=== PATIENT | male | born 1970 ===

== ENCOUNTER 2017-03-28 06:40 | Observation (INO) | payer OTHER ==
[2017-03-28] MEDS ORDERED: Naloxone 0.4 mg/ml Inj (Adult) ONE (06:49)
[2017-03-28] MEDS ORDERED: Naloxone 0.4 mg/ml Inj (Adult) IVP ONE (06:50)
--- NOTE | 2017-03-28 07:29 | C.PDOC ---
History Of Present Illness 46 y/o male, with history of heroin abuse, is brought to the ED by EMS after being found sleeping outside a building. Upon arrival to ED, patient appeared to have decreased respiratory rate and pinpoint pupils. Narcan was given by prior MD. Patient became awake, alert and oriented x3, and admits to heroin use. Otherwise, denies any SI/HI, chest pain, shortness of breath, nausea, vomiting, abdominal pain, headache, neck pain, or any other physical complaints at this time. Time Seen by Provider: 03/28/17 07:07 Chief Complaint (Nursing): Substance Abuse History Per: Patient History/Exam Limitations: intoxication Onset/Duration Of Symptoms: Gradual Current Symptoms Are (Timing): Still Present Suicide/Self Injury Attempted (Context): None Modifying Factor(s): Other (heroin) Severity: None Pain Scale Rating Of: 0 Associated Symptoms: denies: Anxiety, Suicidal Thoughts, Suicidal Plan Involuntary Hold By: None Recent travel outside of the [place]: No Additional History Per: EMS Past Medical History Reviewed: Historical Data, Nursing Documentation, Vital Signs Vital Signs: Last Vital Signs Temp 97.4 F L 03/28/17 17:33 Pulse 65 03/28/17 17:33 Resp 18 03/28/17 17:33 BP 139/88 03/28/17 17:33 Pulse Ox 100 03/28/17 17:33 Family History: States: Unknown Family Hx - Social History Hx Alcohol Use: No Hx Substance Use: Yes - Immunization History Hx Tetanus Toxoid Vaccination: No Hx Influenza Vaccination: No Hx Pneumococcal Vaccination: No Review Of Systems Except As Marked, All Systems Reviewed And Found Negative. Constitutional: Negative for: Fever, Chills Cardiovascular: Negative for: Chest Pain, Palpitations, Light Headedness Respiratory: Negative for: Shortness of Breath Gastrointestinal: Negative for: Nausea, Vomiting, Abdominal Pain Musculoskeletal: Negative for: Neck Pain Skin: Negative for: Rash, Bruising Neurological: Negative for: Weakness, Numbness, Headache, Dizziness Psych: Negative for: Anxiety, Depression, Suicidal ideation Physical Exam - Physical Exam Appears: Non-toxic, No Acute Distress, Other (lethargic) Skin: Normal Color, Warm, Dry, No Rash Head: Atraumatic, Normacephalic, No Other (no signs of head injury) Eye(s): bilateral: Normal Inspection, EOMI Oral Mucosa: Moist Neck: Normal, Normal ROM, No Midline Cervical Tenderness, Supple Cardiovascular: Rhythm Regular, No Murmur Respiratory: Normal Breath Sounds, No Rales, No Rhonchi, No Wheezing Gastrointestinal/Abdominal: Soft, No Tenderness Extremity: Normal ROM, No Deformity Extremity: Bilateral: Atraumatic (no signs of trauma), Normal ROM (Moving all 4 extremities) Neurological/Psych: Oriented x3, Other (arousable) ED Course And Treatment O2 Sat by Pulse Oximetry: 99 (RA) Pulse Ox Interpretation: Normal Progress Note: Plan: Narcan, monitor patient. On re-eval, patient is resting comfortably in bed. No signs of acute distress. ED OBSERVATION Discharge: Yes Date of observation admission: 03/28/17 Time of observation admission: 07:02 - Observation admission statement Patient is being placed in observation because:: heroin abuse - Goals of Observation Goals of observation are:: monitoring for sobriety - Progress Note Progress Note: 03/28/17 08:25 Resting comfortably in NAD 03/28/17 09:30 Resting comfortably in NAD 03/28/17 10:15 Resting comfortably in NAD 03/28/17 12:25 Resting comfortably in NAD 03/28/17 14:25 Asking for food 03/28/17 17:19 Patient has been monitored for over 10 hours in ED. He is now AAOx3, tolerating po and ambulating around the ED. He is requesting to go home. Will dc 03/28/17 18:07 Nurse informed me that patient walked out before he got his discharge paperwork Disposition - Disposition Disposition: HOME/ ROUTINE Disposition Time: 17:21 Condition: GOOD - Clinical Impression Clinical Impression: Drug abuse - Scribe Statement The provider has reviewed the documentation as recorded by the Scribe Jennifer Martinez All medical record entries made by the Macibe were at my direction and personally dictated by me. I have reviewed the chart and agree that the record accurately reflects my personal performance of the history, physical exam, medical decision making, and the department course for this patient. I have also personally directed, reviewed, and agree with the discharge instructions and disposition.
[2017-03-28 15:35] VITALS: RESP 18
[2017-03-28 17:34] VITALS: BP 139/88; PULSE 65; TEMP 97.4
[2017-03-28 18:07] VITALS: O2SAT 99
== END 2017-03-28 17:21 | disposition home or self-care (01) ==
LOC: C.ER 06:40 → MERGE 07:00 → C.9OBSV 07:00
PROVIDERS: ADMIT Emergency Medicine; ATTEND Emergency Medicine
DX: F11.10 Opioid abuse, uncomplicated (principal)
CPT/HCPCS: 96374; G0378; J2310

== ENCOUNTER 2017-05-30 12:30 | Emergency (ER) | payer SELFPAY ==
--- NOTE | 2017-05-30 12:51 | C.PDOC ---
Time Seen by Provider: 05/30/17 12:50 Past Medical History - Medical History PMH: Asthma Family History: States: Unknown Family Hx - Social History Hx Tobacco Use: Yes Hx Alcohol Use: No (Unknown) Hx Substance Use: Yes - Immunization History Hx Tetanus Toxoid Vaccination: No Hx Influenza Vaccination: No Hx Pneumococcal Vaccination: No Disposition Counseled Patient/Family Regarding: Diagnosis, Need For Followup - Disposition Referrals: [facility] [Outside] [facility] at [facility] [Outside] Disposition: HOME/ ROUTINE Disposition Time: 12:51 Condition: GOOD Instructions: Polysubstance Abuse (ED) - Clinical Impression Clinical Impression: Substance abuse
[2017-05-30 12:54] VITALS: BP 133/76; PULSE 75; RESP 15; TEMP 98.2; O2SAT 96
--- NOTE | 2017-05-30 12:54 | C.PDOC ---
History Of Present Illness 46 Y/O MALE BIBA AFTER FOUND SLEEPING. NO MEDS GIVEN. DECLINES ANY FURTHER EVALUATION. EXAM DISSHEVELED AWAKE, TALKING, INTERACTIVE STEADY GAIT Time Seen by Provider: 05/30/17 12:50 Chief Complaint (Nursing): Medical Clearance History Per: Patient History/Exam Limitations: no limitations Current Symptoms Are (Timing): Still Present Recent travel outside of the [place]: No Past Medical History Reviewed: Historical Data, Nursing Documentation, Vital Signs Vital Signs: Last Vital Signs Temp 98.2 F 05/30/17 12:51 Pulse 75 05/30/17 12:51 Resp 15 05/30/17 12:51 BP 133/76 05/30/17 12:51 Pulse Ox 96 05/30/17 12:51 - Medical History PMH: Asthma Family History: States: Unknown Family Hx - Social History Hx Tobacco Use: Yes Hx Alcohol Use: No (Unknown) Hx Substance Use: Yes - Immunization History Hx Tetanus Toxoid Vaccination: No Hx Influenza Vaccination: No Hx Pneumococcal Vaccination: No Review Of Systems Except As Marked, All Systems Reviewed And Found Negative. Constitutional: Negative for: Fever Cardiovascular: Negative for: Chest Pain Respiratory: Negative for: Shortness of Breath, Wheezing Gastrointestinal: Negative for: Vomiting Neurological: Negative for: Headache Physical Exam - Physical Exam Appears: Non-toxic, Other (DISSHEVELED, AWAKE AND ALERT, INTERACTING, AMBULATORY ) Skin: Warm, Dry Head: Atraumatic, Normacephalic Chest: Symmetrical Cardiovascular: Rhythm Regular Respiratory: Normal Breath Sounds, No Wheezing Gastrointestinal/Abdominal: Soft, No Tenderness Extremity: Normal ROM Neurological/Psych: Oriented x3 Gait: Steady ED Course And Treatment O2 Sat by Pulse Oximetry: 96 Pulse Ox Interpretation: Normal Disposition - Disposition Referrals: [facility] [Outside] [facility] at [facility] [Outside] Disposition: HOME/ ROUTINE Disposition Time: 12:51 Condition: GOOD Instructions: Polysubstance Abuse (ED) Forms: [employer] (P[place]an) - Clinical Impression Clinical Impression: Substance abuse - Scribe Statement The provider has reviewed the documentation as recorded by the Scribe SM All medical record entries made by the Scribe were at my direction and personally dictated by me. I have reviewed the chart and agree that the record accurately reflects my personal performance of the history, physical exam, medical decision making, and the department course for this patient. I have also personally directed, reviewed, and agree with the discharge instructions and disposition.
== END 2017-05-30 13:57 | disposition home or self-care (01) ==
LOC: C.ER 12:30
DX: F19.10 Other psychoactive substance abuse, uncomplicated (principal)

== ENCOUNTER 2017-05-31 09:41 | Emergency (ER) | payer SELFPAY ==
[2017-05-31 09:43] VITALS: BMI 27.8
[2017-05-31 09:47] VITALS: TEMP 98.5
--- NOTE | 2017-05-31 11:43 | C.PDOC ---
History Of Present Illness 46 year old male brought to ED via BLS for substance and alcohol abuse. Patient was [place] in [place]. Otherwise, patient denies any active physical complaints at this time. Patient states he would like to "sleep it off ". No other complaints. Chief Complaint (Nursing): Substance Abuse History Per: Patient History/Exam Limitations: no limitations Onset/Duration Of Symptoms: Gradual Current Symptoms Are (Timing): Still Present Suicide/Self Injury Attempted (Context): None Modifying Factor(s): Alcohol Severity: None Pain Scale Rating Of: 0 Associated Symptoms: denies: Suicidal Thoughts, Suicidal Plan Involuntary Hold By: None Recent travel outside of the [place]: No Additional History Per: Patient Past Medical History Reviewed: Historical Data, Nursing Documentation, Vital Signs Vital Signs: Last Vital Signs Temp 98.5 F 05/31/17 09:42 Pulse 61 05/31/17 15:00 Resp 18 05/31/17 15:00 BP 129/79 05/31/17 15:00 Pulse Ox 100 05/31/17 15:00 - Medical History PMH: Asthma Family History: States: Unknown Family Hx - Social History Hx Tobacco Use: Yes Hx Alcohol Use: Yes (Unknown) Hx Substance Use: Yes - Immunization History Hx Tetanus Toxoid Vaccination: No Hx Influenza Vaccination: No Hx Pneumococcal Vaccination: No Review Of Systems Except As Marked, All Systems Reviewed And Found Negative. Constitutional: Negative for: Fever, Chills Cardiovascular: Negative for: Chest Pain, Palpitations Respiratory: Negative for: Cough, Shortness of Breath Gastrointestinal: Negative for: Nausea, Vomiting, Abdominal Pain Neurological: Negative for: Headache, Dizziness Psych: Negative for: Suicidal ideation Physical Exam - Physical Exam Appears: Non-toxic, No Acute Distress Skin: Normal Color, Warm, Dry Head: Atraumatic, Normacephalic Eye(s): bilateral: Normal Inspection Nose: Normal Oral Mucosa: Moist Neck: Supple Chest: Symmetrical Cardiovascular: Rhythm Regular, No Murmur Respiratory: Normal Breath Sounds, No Rales, No Rhonchi, No Wheezing Gastrointestinal/Abdominal: Soft, No Tenderness Back: No CVA Tenderness Extremity: Normal ROM Neurological/Psych: Oriented x3, Normal Speech ED Course And Treatment O2 Sat by Pulse Oximetry: 94 Medical Decision Making Medical Decision Making: Impression: substance abuse, alcohol abuse On re-eval, pt is awake, alert, and oriented x3. Pt is ambulating with steady gait. Patient is being discharged home. Disposition - Disposition Referrals: Clinic,Med Surg [Non-Staff] - Disposition: HOME/ ROUTINE Disposition Time: 14:46 Condition: IMPROVED Additional Instructions: stop using drugs follow up with your doctor in 2 days or medical clinic call to make an appointment return to hospital if symptoms worsens or progress Instructions: Abuse of Alcohol (ED), Polysubstance Abuse (ED) Forms: [facility] (Sinhala), General Discharge Instructions - Clinical Impression Clinical Impression: Drug dependence, Drug abuse - Scribe Statement The provider has reviewed the documentation as recorded by the Scribe Jennifer Martinez All medical record entries made by the Macibe were at my direction and personally dictated by me. I have reviewed the chart and agree that the record accurately reflects my personal performance of the history, physical exam, medical decision making, and the department course for this patient. I have also personally directed, reviewed, and agree with the discharge instructions and disposition.
[2017-05-31 15:00] VITALS: BP 129/79; PULSE 61; RESP 18
[2017-05-31 16:36] VITALS: O2SAT 94
== END 2017-05-31 15:01 | disposition home or self-care (01) ==
LOC: C.ER 09:41
DX: F19.20 Other psychoactive substance dependence, uncomplicated (principal)

== ENCOUNTER 2018-01-09 01:53 | Emergency (ER) | payer SELFPAY ==
[2018-01-09 01:53] VITALS: BMI 27.8
[2018-01-09 02:00] VITALS: RESP 16
--- NOTE | 2018-01-09 02:02 | C.PDOC ---
History Of Present Illness The patient is brought to the ED by ambulance after he was found publicly intoxicated prior to arrival. Patient admits to drinking earlier today. He shows no obvious signs of trauma/injury and has no complaints at this time. Time Seen by Provider: 01/09/18 02:02 Chief Complaint (Nursing): Substance Abuse History Per: Patient, EMS History/Exam Limitations: intoxication Onset/Duration Of Symptoms: Hrs Current Symptoms Are (Timing): Still Present Suicide/Self Injury Attempted (Context): None Modifying Factor(s): Alcohol Severity: None Pain Scale Rating Of: 0 Associated Symptoms: denies: Suicidal Thoughts, Suicidal Plan Involuntary Hold By: None Recent travel outside of the [place]: No Additional History Per: Patient, EMS Past Medical History Reviewed: Historical Data, Nursing Documentation, Vital Signs Vital Signs: Last Vital Signs Temp 98.0 F 01/09/18 01:57 Pulse 75 01/09/18 01:57 Resp 16 01/09/18 01:57 BP 114/72 01/09/18 01:57 Pulse Ox 96 01/09/18 02:39 - Medical History PMH: Asthma Surgical History: No Surg Hx Family History: States: Unknown Family Hx - Social History Hx Tobacco Use: Yes Hx Alcohol Use: Yes (Unknown) Hx Substance Use: Yes - Immunization History Hx Tetanus Toxoid Vaccination: No Hx Influenza Vaccination: No Hx Pneumococcal Vaccination: No Review Of Systems Constitutional: Negative for: Fever, Chills Cardiovascular: Negative for: Chest Pain, Palpitations Respiratory: Negative for: Cough, Shortness of Breath Gastrointestinal: Negative for: Nausea, Vomiting Skin: Negative for: Rash, Lesions, Jaundice, Bruising Neurological: Negative for: Weakness, Numbness Psych: Positive for: Other (EtOH intoxication ). Negative for: Suicidal ideation Physical Exam - Physical Exam Appears: Non-toxic, No Acute Distress, Other (visibly intoxicated ) Skin: Warm, Dry Head: Normacephalic Eye(s): bilateral: Normal Inspection Oral Mucosa: Moist, Other (alcohol on breath ) Neck: Supple Chest: Symmetrical, No Deformity, No Tenderness Cardiovascular: Rhythm Regular, No Murmur Respiratory: No Accessory Muscle Use Extremity: Normal ROM, Capillary Refill (less than 2 seconds ) Neurological/Psych: Other (arousable to touch and verbal stimuli ) Gait: Unsteady ED Course And Treatment O2 Sat by Pulse Oximetry: 96 (on RA ) Pulse Ox Interpretation: Normal Reevaluation Time: 05:19 Reassessment Condition: Improved Disposition Counseled Patient/Family Regarding: Studies Performed, Diagnosis, Need For Followup - Disposition Referrals: [facility] [Outside] Disposition: HOME/ ROUTINE Disposition Time: 02:02 Condition: FAIR Instructions: Alcohol Abuse and Alcoholism (DC) Forms: [facility] (Kiswahili) - Clinical Impression Clinical Impression: Alcohol intoxication - Scribe Statement The provider has reviewed the documentation as recorded by the Scribe (Lexus Martinez) Provider Attestation: All medical record entries made by the Scribe were at my direction and personally dictated by me. I have reviewed the chart and agree that the record accurately reflects my personal performance of the history, physical exam, medical decision making, and the department course for this patient. I have also personally directed, reviewed, and agree with the discharge instructions and disposition.
[2018-01-09 05:27] VITALS: BP 106/71; PULSE 70; TEMP 97.8; O2SAT 97
== END 2018-01-09 05:40 | disposition home or self-care (01) ==
LOC: C.ER 01:53
DX: F10.129 Alcohol abuse with intoxication, unspecified (principal); Z72.0 Tobacco use

== ENCOUNTER 2018-02-26 19:45 | Emergency (ER) | payer SELFPAY ==
[2018-02-26 19:46] VITALS: BMI 27.8
[2018-02-26 19:52] VITALS: RESP 20
--- NOTE | 2018-02-26 20:26 | C.PDOC ---
History Of Present Illness Patient brought into ER via EMS after being found drowsy. Patient admits to using 4 bags of heroin today, states he got out of long-term 2 days ago and was celebrating. Denies suicidal ideation or homicidal ideation. Time Seen by Provider: 02/26/18 20:05 Chief Complaint (Nursing): Substance Abuse History Per: Patient History/Exam Limitations: no limitations Onset/Duration Of Symptoms: Hrs Current Symptoms Are (Timing): Still Present Suicide/Self Injury Attempted (Context): None Modifying Factor(s): Other (Heroin) Severity: None Pain Scale Rating Of: 0 Associated Symptoms: denies: Suicidal Thoughts, Other (Homicidal ideation) Involuntary Hold By: None Recent travel outside of the [place]: No Past Medical History Reviewed: Historical Data, Nursing Documentation, Vital Signs Vital Signs: Last Vital Signs Temp 98 F 02/27/18 01:42 Pulse 72 02/27/18 01:42 Resp 20 02/27/18 01:42 BP 119/76 02/27/18 01:42 Pulse Ox 94 L 02/27/18 03:41 - Medical History PMH: Asthma Family History: States: No Known Family Hx - Social History Hx Tobacco Use: Yes Hx Alcohol Use: Yes (Unknown) Hx Substance Use: Yes - Immunization History Hx Tetanus Toxoid Vaccination: No Hx Influenza Vaccination: No Hx Pneumococcal Vaccination: No Review Of Systems Constitutional: Positive for: Other (Drowsy). Negative for: Fever, Chills Cardiovascular: Negative for: Chest Pain, Palpitations Respiratory: Negative for: Cough, Shortness of Breath Gastrointestinal: Negative for: Nausea, Vomiting Physical Exam - Physical Exam Appears: Non-toxic, Other (Slow to respond) Skin: Warm, Dry Head: Normacephalic Oral Mucosa: Moist Chest: Symmetrical, No Tenderness Cardiovascular: Rhythm Regular Respiratory: No Rales, No Rhonchi, No Wheezing Gastrointestinal/Abdominal: Soft, No Tenderness Neurological/Psych: Oriented x3 ED Course And Treatment - Laboratory Results Result Diagrams: 02/26/18 20:53 02/26/18 20:53 O2 Sat by Pulse Oximetry: 94 (room air) Pulse Ox Interpretation: Normal Progress Note: 2:45 AM vials stable, arousable, no complaints Reevaluation Time: 05:13 Reassessment Condition: Improved Disposition Counseled Patient/Family Regarding: Studies Performed, Diagnosis, Need For Followup - Disposition Referrals: at [facility] [Outside] Disposition: HOME/ ROUTINE Disposition Time: 01:45 Condition: FAIR Instructions: Drug Abuse and Drug Addiction (DC) Forms: [employer] (Egyptian) - Clinical Impression Clinical Impression: Heroin abuse - Scribe Statement The provider has reviewed the documentation as recorded by the Scribe Shilo David All medical record entries made by the Scribe were at my direction and personally dictated by me. I have reviewed the chart and agree that the record accurately reflects my personal performance of the history, physical exam, medical decision making, and the department course for this patient. I have also personally directed, reviewed, and agree with the discharge instructions and disposition.
[2018-02-26 20:59] LABS: BASO % 0.3 % (0.0-2.0); EOS # 0.2 K/uL (0.0-0.7); EOS % 3.2 % (0.0-4.0); HEMOGLOBIN 13.5 g/dL (12.0-18.0); LYMPH # 1.9 K/uL (1.0-4.3); LYMPH % 30.8 % (20.0-40.0); MEAN CELL VOLUME 91.2 fL (80.0-94.0); MEAN CORPUSCULAR HEMOGLOBIN 30.3 pg (27.0-31.0); MEAN CORPUSCULAR HGB CONC 33.3 g/dL (33.0-37.0); MEAN PLATELET VOLUME 10.4 fL (7.2-11.7); MONO # 0.4 K/uL (0.0-0.8); MONO % 6.8 % (0.0-10.0); NEUT # 3.7 K/uL (1.8-7.0); NEUT % 58.9 % (50.0-75.0); RBC 4.45 Mil/uL (4.40-5.90); RED CELL DISTRIBUTION WIDTH 12.6 % (11.5-14.5); WHITE BLOOD COUNT 6.3 K/uL (4.8-10.8)
[2018-02-26 21:13] LABS: ALBUMIN 4.8 g/dL (3.5-5.0); CALCIUM 8.8 mg/dl (8.6-10.4); GFR AFRICAN-AMERICAN > 60; GFR NON-AFRICAN AMERICAN > 60
[2018-02-26 21:15] LABS: ALT/SGPT 121 U/L (21-72); AST/SGOT 94 U/L (17-59); BLOOD UREA NITROGEN 23 mg/dL (9-20)
[2018-02-26 21:20] LABS: URINE BACTERIA RARE (<OCC); URINE BILIRUBIN NEGATIVE (NEGATIVE); URINE BLOOD NEGATIVE (NEGATIVE); URINE CLARITY Hazy (Clear); URINE COLOR Amber (YELLOW); URINE GLUCOSE (UA) NORMAL (Normal); URINE LEUKOCYTE ESTERASE NEG Leu/uL (Negative); URINE PROTEIN 2+ mg/dL (NEGATIVE)
[2018-02-26 21:36] LABS: BARBITURATES, UR NEGATIVE (NEGATIVE); PHENCYCLIDINE, UR NEGATIVE (NEGATIVE)
[2018-02-26 21:56] LABS: BENZODIAZEPINES, UR POSITIVE (NEGATIVE); OPIATES, UR POSITIVE (NEGATIVE)
[2018-02-26 23:25] VITALS: TEMP 98
[2018-02-27 01:43] VITALS: BP 119/76; PULSE 72
[2018-02-27 03:41] VITALS: O2SAT 94
== END 2018-02-27 05:30 | disposition home or self-care (01) ==
LOC: C.ER 19:45
DX: F11.10 Opioid abuse, uncomplicated (principal); Z72.0 Tobacco use
CPT/HCPCS: 80053; 81001; 82948; 85025; 99284; G0480

== ENCOUNTER 2018-03-06 00:49 | Emergency (ER) | payer SELFPAY ==
[2018-03-06 00:49] VITALS: BMI 27.8
--- NOTE | 2018-03-06 01:11 | C.PDOC ---
History Of Present Illness pt found sleeping . states he did methadone. Wants to sleep. Denies any suicidal or homicidal ideation Time Seen by Provider: 03/06/18 01:10 Chief Complaint (Nursing): Substance Abuse History Per: Patient, EMS History/Exam Limitations: no limitations Onset/Duration Of Symptoms: Unknown Current Symptoms Are (Timing): Still Present Suicide/Self Injury Attempted (Context): None Modifying Factor(s): Other (methadone) Severity: None Associated Symptoms: denies: Anger, Depression Involuntary Hold By: None Recent travel outside of the [place]: No Additional History Per: Patient Past Medical History Reviewed: Historical Data, Nursing Documentation, Vital Signs Vital Signs: Last Vital Signs Temp 98.7 F 03/06/18 02:30 Pulse 82 03/06/18 02:30 Resp 16 03/06/18 02:30 BP 106/74 03/06/18 02:30 Pulse Ox 97 03/06/18 02:38 - Medical History PMH: Asthma Family History: States: Unknown Family Hx - Social History Hx Tobacco Use: Yes Hx Alcohol Use: Yes (Unknown) Hx Substance Use: Yes - Immunization History Hx Tetanus Toxoid Vaccination: No Hx Influenza Vaccination: No Hx Pneumococcal Vaccination: No Review Of Systems Constitutional: Negative for: Fever, Chills Cardiovascular: Negative for: Chest Pain Respiratory: Negative for: Shortness of Breath Gastrointestinal: Negative for: Abdominal Pain Musculoskeletal: Negative for: Back Pain Skin: Negative for: Rash Neurological: Negative for: Weakness Psych: Negative for: Anxiety Physical Exam - Physical Exam Appears: Non-toxic, No Acute Distress Skin: Warm, Dry Head: Normacephalic Neck: Supple Chest: Symmetrical Cardiovascular: Rhythm Regular Respiratory: No Rales, No Rhonchi, No Wheezing Gastrointestinal/Abdominal: Soft, No Tenderness Extremity: Normal ROM Neurological/Psych: Oriented x3 Gait: Unsteady ED Course And Treatment O2 Sat by Pulse Oximetry: 97 Pulse Ox Interpretation: Normal Reevaluation Time: 05:02 Reassessment Condition: Improved Disposition Counseled Patient/Family Regarding: Studies Performed, Diagnosis, Need For Followup - Disposition Referrals: [facility] [Outside] Disposition: HOME/ ROUTINE Disposition Time: 01:10 Condition: FAIR Instructions: Polysubstance Abuse (DC) Forms: [employer] ([place]orese) - Clinical Impression Clinical Impression: Drug abuse
[2018-03-06 03:04] VITALS: BP 106/74; PULSE 82; TEMP 98.7
[2018-03-06 05:33] VITALS: RESP 18; O2SAT 98
== END 2018-03-06 05:29 | disposition home or self-care (01) ==
LOC: C.ER 00:49
DX: F19.10 Other psychoactive substance abuse, uncomplicated (principal)

== ENCOUNTER 2018-03-19 09:05 | Emergency (ER) | payer SELFPAY ==
[2018-03-19 09:05] VITALS: BMI 27.8
[2018-03-19 09:18] VITALS: TEMP 98.5
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
[2018-03-19 14:45] VITALS: BP 136/68; PULSE 66; RESP 18; O2SAT 100
== END 2018-03-19 16:06 | disposition home or self-care (01) ==
LOC: C.ER 09:05
DX: F19.10 Other psychoactive substance abuse, uncomplicated (principal)